=== PATIENT | female | born 1945 | race Caucasian/White ===

== ENCOUNTER 2019-08-12 07:44 | Outpatient (CLI) | payer MEDICARE, OTHER, SELFPAY ==
--- NOTE | ~2019-08-12 | US_ITS ---
EXAMINATION:US venous doppler LE LT INDICATION:Left leg DVT. Patient on blood thinners. TECHNIQUE: Multiple grayscale, color flow and Doppler images of the left lower extremity deep venous systems were obtained and reviewed. COMPARISON:No prior studies for comparison. FINDINGS: The common femoral, superficial femoral and popliteal veins demonstrate normal respiratory variation, augmentation and compressibility. Color flow is also seen within the posterior tibial, pe roneal, and profunda veins. There is superficial vein thrombosis of the greater saphenous vein in the calf. IMPRESSION: 1: No lower extremity deep venous thrombosis. 2: Superficial thrombosis of the left greater saphenous vein in the calf. Reviewed, dictated and finalized at location A. OGRAPHY ASSISTANT
== END 2019-08-12 07:45 | disposition home or self-care (01) ==
LOC: ANHIMG 07:54
PROVIDERS: PCP Nurse Practitioner Family; Visit Provider Nurse Practitioner Family
DX: I82.409 Acute embolism and thrombosis of unspecified deep veins of unspecified lower extremity (principal); I82.812 Embolism and thrombosis of superficial veins of left lower extremity
CPT/HCPCS: 93971

== ENCOUNTER 2023-08-03 12:32 | Outpatient (CLI) | payer MEDICARE, OTHER, SELFPAY ==
--- NOTE | ~2023-08-03 | US_ITS ---
EXAMINATION: US venous doppler [facility] DATE: 08/03/2023 13:36 INDICATION: Left lower limb pain TECHNIQUE: Grayscale ultrasound images without and with compression and Doppler ultrasound images of the left lower extremity veins were obtained. COMPARISON: None. FINDINGS: The visualized portions of left common femoral vein, profunda (deep) femoral vein, femoral vein, popl iteal vein, peroneal veins, posterior tibial veins, gastrocnemius vein and greater saphenous vein are patent. IMPRESSION: 1. No deep venous thrombosis in the left lower limb. Reviewed, dictated and finalized at location A. SPLITTER
== END 2023-08-03 12:33 | disposition home or self-care (01) ==
LOC: ANHIMG 12:40
PROVIDERS: PCP Nurse Practitioner Family; Visit Provider Nurse Practitioner Family
DX: R79.89 Other specified abnormal findings of blood chemistry (principal)
CPT/HCPCS: 93971

== ENCOUNTER 2025-01-17 11:31 | Outpatient (CLI) | payer MEDICARE, OTHER, SELFPAY ==
--- NOTE | ~2025-01-17 | MMUS_ITS ---
EXAMINATION: MM diagnostic mammo implant RT, US breast RT limited HISTORY: Palpable right breast mass. TECHNIQUE: 3-D tomosynthesis images of the right breast were performed and synthetic 2-D images were generated. CAD analysis was submitted and interpreted. High resolution limited right breast ultrasoun d was performed. COMPARISON: None BREAST PARENCHYMAL COMPOSITION:Dense: The breasts are heterogeneously dense, which may obscure small masses. FINDINGS: MAMMOGRAPHIC FINDINGS: Breast implant in place. On CC view, there is an apparent 2.9 cm ovoid mass at the outer right breast . No suspicious microcalcifications are seen. ULTRASOUND: At the area of palpable concern at the 8:00 position right breast, 9 cm on the portal, there is a 4.7 x 2.6 x 6.8 cm lobulated solid mass with areas of hyperechogenicity and hypoechogenicity within it. There is a vascular flow within the lesion. IMPRESSION: 6.8 x 2.6 x 4.7 cm solid mass at the right breast 8:00 position, as detailed above. This lesion is s uspicious. Ultrasound-guided biopsy recommended to establish a histologic diagnosis. BI-RADS category 5, highly suggestive of malignancy. Reviewed, dictated and finalized at location M. IMPRESSION: 6.8 x 2.6 x 4.7 cm solid mass at the right breast 8:00 position, as detailed a ajime. This lesion is suspicious. Ultrasound-guided biopsy recommended to establ juan a histologic diagnosis. BI-RADS category 5, highly suggestive of malignancy. IMPRESSION: 6.8 x 2.6 x 4.7 cm solid mass at the right breast 8:00 position, as detailed a jaime. This lesion is suspicious. Ultrasound-guided biopsy recommended to establ juan a histologic diagnosis. BI-RADS category 5, highly suggestive of malignancy.
--- OUTSIDE RECORDS SUMMARY | 2025-01-17 11:37 | XMS_ITS | Data Portability ---
Author Organization [facility] IP Address [address] [place] [address] Assessment No assessment recorded. Plan of Treatment Reminders Order Date Submit Date Provider Last Modified By Organization Details Last Modified Time Details Appointments None recorded. Lab None recorded. Referral None recorded. Procedures None recorded. Surgeries None recorded. Imaging US, breast, unilateral - soft mass right breast outer lower quadrant 2024 025 [facility], [address], [address], [place], [address], 5 13:51:51 Medication Orders None recorded. Patient TargetsNo targets recorded. Patient InstructionsNo instructions recorded. Reason for Referral None Reported. Medical Equipment None Reported. Medications Name Sig Start Date Stop Date Status Note LastModified by Organization Details LastModified Time amiloride 5 mg-hydrochlo rothiazide 50 mg tablet TAKE 1 TABLET BY MOUTH EVERY DAY active Not Available Not Available No t Available carvedilol 12.5 mg tablet TAKE 2 TABLETS BY MOUTH EVERY 12 HOURS, MUST ADMINISTER WITH A MEAL/FOOD active Not Available Not Available No t Available triamcinolon e acetonide 0.1 % topical cream APPLY 1 APPLICATION ONTO THE AFFECTED AREA(S) ON THE SKIN TWICE DAILY active Not Available Not Available Not Available levothyroxin e 100 mcg tablet TAKE 1 TABLET BY MOUTH EVERY DAY active Not Available Not Available No t Available rosuvastatin 20 mg tablet TAKE 1 TABLET BY MOUTH DAILY active Not Available Not Available Not Available Vitals Date Recorded Body height Oxygen saturation Oxygen saturation in Arterial blood by Pulse oximetry Heart rate Respiratory rate Body mass index (BMI) Body weight Systolic And Diastolic Provider Name and Address Organization Details Last Updated DateTime 5 162.56 cm 95 % 95 % 74 /min 16 /min 30 kg/m2 45915.2 3 g 198/87 mm[Hg] Deanna Barrett MA [place] - [facility] 14:21:21 Social History None recorded. Functional Status None recorded. Mental Status None recorded. Family History Nothing Reported. Medical History No medical history recorded. Gynecological HistoryNo gynecological history recorded. Obstetrics History GPAL:G 0 P 0 0 0 0 Past Encounters Encounter ID Performer Location Encounter Start Date Encounter Closed Date Diagnosis/Indication Diagnosis SNOMED-CT Code Diagnosis ICD10 Code Diagnosis Note [id number] Kerwin Beth MD [facility] [address] [place] [address] 12/17/2024 14:07:13 12/18/2024 09:50:57 Lump in lower outer quadrant of right breast [id number] 40658 N63.13 discussed with patient that we would get an ultrasound to further define this abnormal mass on her right breast. She understand s this. Patient lives near [facility] so we will schedule it in this location. I will see patient back after the ultrasound is done Health Concerns Section Related Observation LastModified by Organization Detai ls LastModified Time None Recorded Concern Status LastModified by Organization Details LastModified Time None Recorded Advance Directives Directive None Recorded Payers Insurance Date Sequence Insurance Name Policy Number Policy Mohamud Covered Member ID Mohamud Member ID Guarantor Name 12/13/2024 1 [place] Ayde A Gobble [id number] Ayde A Gobble 12/13/2024 2 [facility] (INDEMNITY) Ayde A Gobble [id number] Ayde A Gobble 12/13/2024 2 [employer] Ayde A Gobble [id number] Ayde A Gobble OBGyn Episode No OBEpisode recorded.
--- OUTSIDE RECORDS SUMMARY | 2025-01-17 11:38 | XMS_ITS | Continuity of Care Document ---
Author Organization [facility], TD Address [address] [place] [address] Phone Care Team Providers Care Histology Technologist Name Role Phone Marla Glaser OD Unavailable Unavailable Allergies, Adverse Reactions, Alerts Substance Reaction Status Criticality No Known Allergies Active No Inform ation Medications Medication Instructions Dosage Effective Dates (start - stop) Status Comments Menest 0.3 mg tablet - Activ e folic acid 400 mcg tablet take 1 tablet by oral route every day 0.4 MG - Active aspirin 81 mg chewable tablet chew 1 tablet by oral route every day 81 MG - Active biotin 1,000 mcg chewable tablet - Active Vision Formula (with lutein) 1,000 unit-200 mg-60 unit-2mg tablet - Active Multiple Vitamin, Womens tablet - Active Calcium 600 + D(3) 600 mg calcium-200 unit capsule - Active Vitamin D3 1,000 unit capsule - Active Covaryx H.S. 0.625 mg-1.25 mg tablet take 1 tablet by oral route for 21 consecutive days, followed by 7 days off 1.00 tablet - Active omeprazole 40 mg capsule,delayed release take 1 capsule by oral route every day before a meal 40 MG - Active atorvastatin 10 mg tablet take 1 tablet by oral route every day 10 MG - Active Tirosint 25 mcg capsule take 1 capsule by oral route every day 25 MCG - Active naproxen 250 mg tablet take 1 tablet by oral route every day with food 250 MG - Active Mapap (acetaminophen) 500 mg capsule take 1 capsule by oral route every 2 hours as needed 500 MG - Active melatonin 5 mg capsule - Active Procedures Procedure Date EYE EXAM ESTABLISHED PATIENT, MEDICAL Ja REFRACTION OPTIONAL UPDATE Postoperative Exam Miscellaneous vision service Postoperative Exam Postoperative Exam CATARACT SURG W/IOL IOL MASTER, PROF COMP ONLY Postoperative Exam Postoperative Exam CATARACT SURG W/IOL EYE EXAM, NEW PATIENT MEDICAL REFRACTION OPTIONAL UPDATE IOL MASTER Post Operative Kit / Medical Supply By P rescription Advance Directives Directive Yes / No Effective Date File Name No Information Encounters Encounter Description Practice Location Reason(s) For Visit Diagnoses Date Provider Providers Copied on Encounter [facility], [address] [place] [address], [id number] , [place] tel: [phone] [facility] blurry vision (chief complaint) Other secondary cataract, bilateralOther secondary cataract, right eyePresbyopia 8 Alfredito Gutiérrez . [address] [place] [address], [id number] , [place]. tel: [phone] [facility], [address] [place] [address], [id number] , [place] tel: [phone] [facility] watering and pain (chief complaint) Presence of intraocular lens Apr- 7 Alfredito Gutiérrez . [address] [place] [address], [id number] , [place]. tel: [phone] [facility], [address] [place] [address], [id number] , [place] tel: [phone] [facility] No Information 7 Alfredito LopezMarla . [address] [place] [address], [id number] , [place]. tel: [phone] Referring Provider: Juvenal Mccracken, [address] [place] [address], [id number] . tel:[phone] [facility], [address] [place] [address], [id number] , [place] tel: [phone] [facility] improved vision (chief complaint) Presence of intraocular lens Sep-2 7 Alfredito Gutiérrez . [address] [place] [address], [id number] , [place]. tel: [phone] [facility], [address] [place] [address], [id number] , [place] tel: [phone] [facility] vision is improved, but still blurry OS (chief complaint)G ritty feeling yesterday, better today OS (chief complaint)v ision is improved, denies pain or WHITE OD (chief complaint) No Information Sep-0 7 Alfredito Gutiérrez . [address] [place] [address], [id number] , [place]. tel: [phone] [facility], [address] [place] [address], [id number] , [place] tel: [phone] [facility], [facility] No Information Sep-0 7 Montrell Sanford. [address] [place] [address], [id number] , [place]. tel: [phone] [facility], [address] [place] [address], [id number] , [place] tel: [phone] [facility] No Information Sep-0 7 Mnotrell Sanford. [address] [place] [address], [id number] , [place]. tel: [phone] Referring Provider: Juvenal Mccracken, [address] [place] [address], [id number] . tel:[phone] [facility], [address] [place] [address], [id number] , tel: [phone] [facility] Main clearer vision (chief complaint) Presence of intraocular lensCataract extraction status, right eye 7 Loc [place]. [address] [place], [place], [id number] , [place]. tel: [phone] [facility], [address] [place] [address], [id number] , [place] tel: [phone] [facility] vision is improved but still blurry OD (chief complaint)d enies pain or discomfort, does have WHITE OD (chief complaint)S table VA, no pain or discomfort OS (chief complaint) No Information 7 Alfredito Gutiérrez . [address] [place] [address], [id number] , [place]. tel: [phone] [facility], [address] [place] [address], [id number] , [place] tel: [phone] [facility], [facility] No Information 7 Montrell Sanford. [address] [place] [address], [id number] , [place]. tel: [phone] [facility], [address] [place] [address], [id number] , [place] tel: [phone] [facility] blurry vision (chief complaint)archie mendozae (chief complaint) Myopia, bilateralRegular astigmatism, bilateralPresbyop ia 7 Montrell Sanford. [address] [place] [address], [id number] , [place]. tel: [phone] Referring Provider: Juvenal Mccracken, [address] [place] [address], [id number] . tel:[phone] Family History Family Member Type Diagnosis Age At Onset Mother Problem (finding) degenerative disorder o f macula Problem (finding) No family history of Hy pertension Problem (finding) No family history of St roke Mother Problem (finding) Cardiovascular disease Problem (finding) No family history of Di abetes mellitus Sister Problem (finding) degenerative disorder o f macula Payers Payer name Insurance type Covered democrat ID Authorwina tisharath(s) No Information Social History Type Description Quantity Date Captured Comments Alcohol Use Details Unknown Caffeine Use Details Unknown Tobacco Use Status Never smoked tobacco 2017 Smoking Status Never smoker Non-Smoking Tobacco Use Details : No Details Available : No Details Available Sex Female Chief Complaint And Reason For Visit From encounter dated '08/02/2017 08:15'. blurry vision (chief complaint). Description: The 71 Year old female presents for evaluation of blurry vision in the right eye and left eye. It started about 1 month(s) ago. It affects distance vision. It occurs constantly. Pt states she mostly notices the TV being blurry and reading the ticker at the bottom. The patient denies pain or discomfort. Pt does not use any eye meds. Pt had Cat Surgery OU Feb 2017. Reason For Referral Reason For Referral No Information History Of Present Illness Encounter Date Complaint History Of Prese nt Illness blurry vision The 71 Year old female presents for evaluation of blurry vision in the right eye and left eye. It started about 1 month(s) ago. It affects distance vision. It occurs constantly. Pt states she mostly notices the TV being blurry and reading the ticker at the bottom. The patient denies pain or discomfort. Pt does not use any eye meds. Pt had Cat Surgery OU Feb 2017. watering and pain The 71 Year ol d female presents for evaluation of watering and pain in the left eye. It started about 4 day(s) ago. The onset was gradual. It affects both near and far vision. It occurs constantly. The condition is worsening. The patient denies headaches. Pt continues to use Pred BID OS and also started using Clear eyes cooling, but has only used 3-4 times in the last week. Pt started new meds about 1 week ago: Estrogen 1 tab PO QD and Metronidazole 500 mg PO BID. improved vision The 71 Year old female presents for PO 2&3 Cataract surgery OU. Pt reports improved vision in the right eye and left eye since surgery about 3 week(s) ago. It affects distance vision. The patient denies pain or discomfort. Pt continues to use Pred BID OU. Pt has also still been using the Ofloxacin and Ketorolac BID OU. vision is improved, denies pain or WHITE vision is improved, denies pain or WHITE OD Gritty feeling yeste rday, better today Gritty feeling yesterday, better today OS vision is improved, but still blurry vision is improved, but still blurry OS clearer vision The 71 Year old female presents for f/u of STD IOL OD(03/03/17) c Elevated IOP. Pt reports of clearer vision in the right eye, since yesterday. The patient denies pain or discomfort OU. Pt using Ofloxacin QID OD, Ketorolac QID OD, and Pred Acetate QID OD. denies pain or disco mfort, does have WHITE denies pain or discomfort, does have WHITE OD vision is improved b ut still blurry vision is improved but still blurry OD Stable VA, no pain or discomfort Stable VA, no pain or discomfort OS blurry vision The 71 Year old female presents for Cataract evaluation OU. Pt states that she has blurry vision in the right eye and left eye. The onset was gradual. It affects both near and far vision. It occurs frequently. The condition is worsening. The condition is described as causing headaches and hazy vision. The patient denies pain or discomfort and headaches. Pt had cex with Eitan on January 31, 2017. Zainab is calling to get records. glare The patient comp lains of glare in the right eye and left eye. The onset was gradual. It affects both near and far vision. It occurs at night. The condition is worsening. Functional Status Date Functional Assessmen t No Information Instructions Date Instruction Additional Infor flaco Impression/Plan - Wi ll monitor floater OU.Will monitor PCO OD. PCO is not severe enough to warrant YAG. Optional glasses RX update improves vision.Will monitor PT X 6 months. Follow up - 6 months with MICHEAL fo r RTD 1 year with MICHEAL for Refract, T & D. Related to Presence of intraocular lens Impression/Ritika Alvarez ashley's eyes are healed OU. Reminded patient that she should DISCONTINUE: Ofloxacin and Ketorolac. CONT: Prednisolone BID OU up until 5 weeks post surgery. Patient states she'd like to wear glasses master fisher- rx update is available for patient. Will re-eval yearly. Related to Presence of intraocular lens Follow up - 1 year w ith MICHEAL for Refract, T & D. Related to Presence of intraocular lens Impression/Plan - IO P is much better today at 11 OD. D/C Alphagan P gtt . Cont. Pred Forte, Ketoralac and Ofloxacin gtt QID OD as instructed. Okay to proceed with OS surgery as scheduled; use Combigan gtt starting 2 days before OS surgery. Follow up - per surg Jagdeep/Ritika Alvarez ashley does have cataracts that are ready for surgery OU. explained cataract surgery procedure. Risks with surgery include bleeding, swelling, infection, need for more surgery and loss of vision. Only one eye is done at a time. May have irritation for a few days following surgery. IOL options to choose from based on the health of your eyes: 1. Basic cataract surgery: will need glasses distance & near after surgery. 2. Astigmatism correction: Best distance vision. Will need glasses for near. 3. Multifocal w/ some astigmatism correction: 95% of activities without glasses; may need glasses for very near tasks and low lighting situations. In the future, may need laser on the cloudy membrane around the lens implant. *Patient prefers to wear glasses after surgery- will do standard lenses* Follow up - per surgery Assessments Type Assessment Date assessment Other secondary cataract, bilate ral assessment Other secondary cataract, right eye assessment Presbyopia Patient Care Teams Name Effective Dates (start - stop) Status Members No Information
--- OUTSIDE RECORDS SUMMARY | 2025-01-17 11:38 | XMS_ITS | Clinical Summary ---
Author Organization [facility] Care Team Providers Care Merchandise Displayer Name Role Phone Unavailable Primary Care Provider Unavailabl e Social History Tobacco Use Types Packs/Day Years Used Date Smoking Tobacco: Never Assessed Comments Unknown Sex and Gender Information Value Date Recorded Sex Assigned at Not on file Legal Sex Female 9:13 PM CDT Gender Identity Not on file Sexual Orientation Not on file Plan of Treatment Health Maintenance Due Date Last Done Comments DEXA Bone Density 1945 Hepatitis C Virus (HCV) Screening 1945 TdaP Immunization 1945 Pneumococcal Immunization (5 0+ years) (1 of 1 - PCV) 1994 Zoster Immunization (1 of 2) 1994 Respiratory Syncytial Virus (RSV) Immunization (Adult) (1 - 1-dose 75+ series) 10/22/2019 Influenza Immunization (#1) 2024 SARS-COV-2 Immunization (2 - season) 2024 10/15/2020 Hepatitis B Immunization Aged Out No longer eligible based on patient's age to complete this topic Meningococcal Immunization (ACWY) Aged Out No longer eligible based on patient's age to complete this topic Rotavirus Immunization Aged Out No lo nger eligible based on patient's age to complete this topic
== END 2025-01-17 11:32 | disposition home or self-care (01) ==
LOC: ANHIMG 11:36
PROVIDERS: PCP Family Medicine
DX: N63.13 Unspecified lump in the right breast, lower outer quadrant (principal)
CPT/HCPCS: 76642; 77065

== ENCOUNTER 2025-02-12 09:09 | Outpatient (CLI) | payer MEDICARE, OTHER, SELFPAY ==
--- NOTE | ~2025-02-12 | MMUS_ITS ---
PROCEDURE: US breast biopsy RT w image, MM post biopsy diagnostic RT, US breast cyst asp RT CLINICAL HISTORY: 79-year-old with prior history of left breast cancer, status post bilateral mastect helena and reconstruction with saline implants presented with palpable right breast mass demonstrated on ultrasound to represent a suspicious complex mass at 8:00 position. She presents for ultrasound-guid ed core needle biopsy procedure. COMPARISON: 01/17/2025 Following informed consent including risks, benefits, and possible complications, the patient was bro ught to the ultrasound suite. A time-out procedure was performed. A preliminary ultrasound of the [facility] breast was performed, redemonstrating Cristy-implant fluid collection and a large collection of flu id containing debris material within the breast at 8:00 location that correlates to the patient's pal pable lump. The patient was prepped and draped in the usual sterile fashion. 1% lidocaine was instilled into the subcutaneous tissues. 1% lidocaine with epinephrine was injected into the deep tissues just inferior to the lesion. Approximately 15cc lidocaine was administered. A small skin jeannette was made. Aspiration of the fluid collection within the breast at 8:00 location was performed with a 16-gauge p lastic needle. Approximately 25 cc of bloody fluid was aspirated which resulted in the collapse of th e palpable lump and also allow better visualization of hypoechoic area at 8:00 location. I proceeded to core needle biopsy of the hypoechoic area. Multiple core samples were obtained with a 13-gauge vacuum assisted biopsy needle. A post biopsy meta l marker was placed at the biopsy site. Postprocedural mammogram of the right breast in craniocaudal and mediolateral projections reveal the post biopsy metal marker in good position. Right breast implant is intact.The patient tolerated the p rocedure well and was without immediate postprocedural complications. IMPRESSION: Successful ultrasound guided aspiration and ultrasound guided biopsy of right breast comp shiv mass. A post biopsy metal marker was placed at the biopsy site, which is seen on postprocedural m ammogram. The patient tolerated the procedure well without immediate postprocedure complications. The patient w as given postprocedural instructions and sent home in stable condition. Reviewed, dictated and finalized at location B. IMPRESSION: Successful ultrasound guided aspiration and ultrasound guided biops y of right breast complex mass. A post biopsy metal marker was placed at the bi opsy site, which is seen on postprocedural mammogram. The patient tolerated the procedure well without immediate postprocedure compli cations. The patient was given postprocedural instructions and sent home in sta ble condition. IMPRESSION: Successful ultrasound guided aspiration and ultrasound guided biops y of right breast complex mass. A post biopsy metal marker was placed at the bi opsy site, which is seen on postprocedural mammogram. The patient tolerated the procedure well without immediate postprocedure compli cations. The patient was given postprocedural instructions and sent home in sta ble condition.
--- OUTSIDE RECORDS SUMMARY | 2025-02-12 09:28 | XMS_ITS | Clinical Summary ---
Author Organization [facility] Care Team Providers Care Medical Administrator Name Role Phone Unavailable Primary Care Provider Unavailabl e Social History Tobacco Use Types Packs/Day Years Used Date Smoking Tobacco: Never Assessed Comments Unknown Sex and Gender Information Value Date Recorded Sex Assigned at Not on file Legal Sex Female 9:13 PM CDT Gender Identity Not on file Sexual Orientation Not on file Plan of Treatment Health Maintenance Due Date Last Done Comments Hepatitis C Virus (HCV) Screening 1945 TdaP Immunization 1945 Pneumococcal Immunization (5 0+ years) (1 of 1 - PCV) 1994 Zoster Immunization (1 of 2) 1994 Respiratory Syncytial Virus (RSV) Immunization (Adult) (1 - 1-dose 75+ series) 10/22/2019 SARS-COV-2 Immunization (2 - season) 2024 10/15/2020 Influenza Immunization (#1) 2025 Hepatitis B Immunization Aged Out No longer eligible based on patient's age to complete this topic Human Papillomavirus (HPV) Immunization Aged Out No longer eligible b ased on patient's age to complete this topic Meningococcal Immunization (ACWY) Aged Out No longer eligible based on patient's age to complete this topic Rotavirus Immunization Aged Out No lo nger eligible based on patient's age to complete this topic
--- NOTE | 2025-02-12 10:47 | S_PTH ---
PATIENT: Ayde Yu LOC: [facility] U#:[id number] AGE/SX: 79/F ROOM: RE02/12/[address]: NATALIE: 1945 BED: DIS: 02/12/2025 SPEC #: [id number] RECD: 02/12/25 11:18 STATUS: LEONID RE #: [id number] KOBE: 02/12/25 10:[address]: Teresa,Josué Judd DEPT: [facility] Surgical RECD BY: Rudy Jalloh ENTERED: 02/12/25 11:19 SP TYPE: Surgical OTHR DR: PHYSICIAN NOT ON STAFF Mitch Hong MD Tissues: A - Breast Biopsy B - Cytology Fluid Procedures: Hematoxylin and Eosin Stain Cell Block Gross and Microscopic Level 4 Cytopathology Cytospin
== END 2025-02-12 09:10 | disposition home or self-care (01) ==
LOC: ANHIMG 09:11
PROVIDERS: PCP Family Medicine
DX: N60.01 Solitary cyst of right breast (principal); N63.13 Unspecified lump in the right breast, lower outer quadrant
CPT/HCPCS: 19000; 19083; 77065; 87070; 87075; 87205; 88108; 88305; A4648